=== PATIENT | male | born 1995 | race Caucasian/White ===

== ENCOUNTER 2017-09-29 14:59 | Emergency (ER) | payer OTHER ==
[2017-09-29 15:12] VITALS: BP 139/82; PULSE 74; RESP 16; TEMP 98.1; O2SAT 97
--- NOTE | 2017-09-29 15:57 | EDPHY ---
H & P Stated Complaint: jumped last last and injured left ankle Time Seen by Provider: 09/29/17 15:54 HPI/ROS: HPI: This is a 22-year-old male who presents with Chief Complaint: Left ankle injury Location: Left lateral ankle Quality: Injury Duration: Last night Signs and Symptoms: No bleeding, no radiation, no numbness, no weakness, no tingling, no incontinence, + decreased range of motion, + swelling, + pain Timing: Acute, gradually worsening Severity: Moderate Context: Patient reports that he was drinking alcohol last night, jumped up, and when he landed somehow twisted his left ankle. He noted immediate pain but it wore off throughout the night. He woke up this morning with his left lateral ankle with moderate swelling, constant pain that worsened with weight- bearing and noted ecchymosis. He denies paresthesias. Notes mild decreased range of motion. No prior history of ankle sprains. Drinking alcohol last night. Accidental. Modifying Factors: Has not take any [id number] medications or applied ice. Comment: ROS: see HPI Constitutional: No fever, no chills, no weight loss Eyes: No blurred vision Respiratory: No shortness of breath, no cough Cardiovascular: No chest pain Gastrointestinal: No nausea, no vomiting no diarrhea Genitourinary: No dysuria Extremities: No myalgias Neurologic: No weakness, no numbness Skin: No rashes Hematologic: No bruising, no bleeding MEDICAL/SURGICAL/SOCIAL HISTORY: Medical history: Generally healthy. Does not take any regular medications. Surgical history: Denies Social history: Local college student CONSTITUTIONAL: awake and alert, no obvious distress HEENT: Atraumatic and normocephalic, PERRL, EOMI. Tympanic membranes clear. Oropharynx clear, no exudate and moist pink mucosa. Airway patent. No lymphadenopathy. No meningismus. Cardiovascular: Normal S1/S2, regular rate, regular rhythm, without murmur rub or gallop. PULMONARY/CHEST: Symmetrical and nontender. Clear to auscultation bilaterally. Good air movement. No accessory muscle usage. ABDOMEN: Soft, nondistended, nontender, no rebound, no guarding, no peritoneal signs, no masses or organomegaly. No CVAT. EXTREMITIES: 2/2 DP and PT pulses, strength 5/5, LEFT Ankle; moderate lateral malleolus swelling with mild ecchymosis; Plantar flexion to 50, dorsiflexion to 20. Foot inversion to 35 degree. Moderate pain and swelling Anterior talofibular ligament. Moderate pain and swelling Calcaneofibular ligament, no pain and swelling posterior talofibular ligament, no pain and swelling posterior inferior tibiofibular ligament. Achilles tendon intact. no deformities , no clubbing, no cyanosis or edema. NEUROLOGICAL: no focal neuro deficits. GCS 15. SKIN: Warm and dry, no erythema. no rash. Good capillary refill. Source: Patient Exam Limitations: No limitations - Personal History Current Tetanus/Diphtheria Vaccine: Unsure Current Tetanus Diphtheria and Acellular Pertussis (TDAP): Unsure - Medical/Surgical History Hx Asthma: No Hx Chronic Respiratory Disease: No Hx Diabetes: No Hx Cardiac Disease: No Hx Renal Disease: No Hx Cirrhosis: No Hx Alcoholism: No Hx HIV/AIDS: No Hx Splenectomy or Spleen Trauma: No - Social History Smoking Status: Never smoked Constitutional: Initial Vital Signs Temperature (C) 36.7 C 09/29/17 15:10 Heart Rate 74 09/29/17 15:10 Respiratory Rate 16 09/29/17 15:10 Blood Pressure 139/82 H 09/29/17 15:10 O2 Sat (%) 97 09/29/17 15:10 O2 Delivery Mode Room Air Allergies/Adverse Reactions: No Known Allergies Allergy (Unverified 09/29/17 15:10) Home Medications: Medication Instructions Recorded Ibuprofen 800 mg PO Q8 PRN #20 tablet 09/29/17 Medical Decision Making - Diagnostics Imaging Results: Imaging Impressions Ankle X-Ray 09/29/17 15:19 Impression: Soft tissue swelling over the lateral malleolus and tibiotalar joint effusion. No evidence for fracture laterally. Possible avulsion fracture or sequela from old injury inferior to the medial malleolus. Procedures: Procedure: Splint placement. A ankle stirrup splint was applied by the Emergency Room fire control technician b. After application of the splint I returned and re-examined the patient. The splint was adequately immobilizing the joint and distal to the splint the patient's circulation and sensation was intact. ED Course/Re-evaluation: X-rays, ice pack, oral medications ordered No signs of neurovascular compromise/tenting of skin/compartment syndrome/ extremities and joints examined above and below area of concern and are neurovascularly intact. Ankle x-ray my read shows Soft tissue swelling over the lateral malleolus and tibiotalar joint effusion. No evidence for fracture laterally. Radiology question Possible avulsion fracture or sequela from old injury inferior to the medial malleolus. Placed in ankle stirrup splint. Crutches. Partial weight-bearing and advance as tolerated. Rice therapy. This patient was seen under the supervision of my secondary supervising physician. I evaluated care for this patient independently. Patient's presentation, labs/imaging, treatment and plan of care were discussed with secondary supervising physician. Differential Diagnosis: Differential diagnosis includes but is not limited to fracture, contusion, nerve injury, ligament injury. Departure - Departure Disposition: Home, Routine, Self-Care Clinical Impression: Moderate left ankle sprain Qualifiers: Encounter type: initial encounter Qualified Code(s): S93.402A - Sprain of unspecified ligament of left ankle, initial encounter Condition: Good Instructions: Ankle Sprain (ED), Ankle Stirrup Splint (ED), RICE Therapy (ED) Additional Instructions: Wear the ankle splint and use crutches when out of bed until pain free or follow up with Orthopedics. Start off with toe-touch weight-bearing and advance as tolerated according to pain. Take Tylenol 650 mg every 4 hours and/or Ibuprofen 800 mg every 8 hours with food as needed for pain. Apply ice for 30 minutes at a time; 2-3 times per day for the next 1-2 days. Follow up with Orthopedics in 7-10 days if pain/symptoms persist or worsen at which time they will evaluate and recommend with you if conservative management versus further diagnostic imaging is indicated. The x-rays obtained in the emergency department today demonstrate no evidence of an obvious fracture. Sometimes fractures are not obvious on the initial set of x-rays performed in the ED. For this reason, you should have repeat x-rays performed in 7-10 days if you are having any pain exclude the possibility of an occult fracture. Referrals: Tyrese Kenney MD [Medical Doctor] - As per Instructions Prescriptions: Ibuprofen 800 mg PO Q8 PRN #20 tablet PRN Reason: Pain, Moderate
== END 2017-09-29 16:22 | disposition home or self-care (01) ==
DX: S93.402A Sprain of unspecified ligament of left ankle, initial encounter (principal); X58.XXXA Exposure to other specified factors, initial encounter
CPT/HCPCS: L4350